=== PATIENT | female | born 1975 | race Caucasian/White ===

== ENCOUNTER → 2022-05-09 | Outpatient (CLI) | payer OTHER, SELFPAY ==
[2022-05-09 12:58] LABS: Erythrocyte Sedimentation Rate 4 mm/hr (0-30)
[2022-05-09 13:00] LABS: Absolute Neutrophil Count 2.9 X10^3/uL (2.0-7.7); Basophil# 0.04 X10^3/uL; Basophil% 0.8 % (0-1); Eosinophil# 0.13 X10^3/uL; Eosinophils% 2.5 % (0-5); Hematocrit 41.5 % (37-47); Hemoglobin 13.3 g/dL (12.0-15.0); Lymphocyte % 34.4 % (19-41); Mean Corpuscular Hgb 30.4 pg (27.0-32.0); Mean Platelet Vol. 9.9 fl (6.2-12.0); Monocyte# 0.38 X10^3/uL; Monocyte% 7.3 % (0-10); NRBC Flagged by Analyzer 0 % (0-5); Neutrophil # 2.87 X10^3/uL (2.7-7.7); Neutrophil % 54.8 % (47-70); Platelet Count 233 K/mm3 (150-450); RBC Distribution Width CV 13.5 % (11.6-14.6); RBC Distribution Width SD 47.2 fl (35.1-43.9); Red Blood Count 4.37 M/mm3 (4.2-5.4); White Blood Count 5.2 K/mm3 (4.4-11.0)
[2022-05-09 13:29] LABS: ALB/GLOB Ratio 1.1 RATIO (0.9-2.4); AST(SGOT) 18 U/L (15-37); Alanine Aminotransfer ALT/SGPT 33 U/L (13-56); Albumin, Serum 3.7 g/dL (3.2-5.0); Alkaline Phosphatase 71 U/L (45-117); Anion Gap 8 (5-15); BUN 15 mg/dL (7-18); BUN/Creat Ratio 19.5 RATIO (10-20); CRP < 2.90 mg/L (0.0-3.0); Chloride 107 mmol/L (98-107); Creatinine, Serum 0.77 mg/dL (0.55-1.02); EST Glomerular Filtration Rate 85 mL/min (>60); Est Glom Filt Rate - Afr Amer 103 mL/min (>60); Globulin 3.3 g/dL (2.2-4.2); Glucose 90 mg/dL (74-106); LDH 178 U/L (84-246); Potassium 3.9 mmol/L (3.5-5.1); Sodium Level 143 mmol/L (136-145)
[2022-05-10 13:08] LABS: Anti-Centromere B Ab <0.2 AI (0.0-0.9); Anti-Chromatin <0.2 AI (0.0-0.9); Anti-Jo <0.2 AI (0.0-0.9); Anti-Scleroderma-70 AB <0.2 AI (0.0-0.9); RNP Ab <0.2 AI (0.0-0.9); SJOGREN'S Anti-SS-A test < 0.2 AI (0.0-0.9); SJOGREN'S Anti-SS-B test < 0.2 AI (0.0-0.9); Smith Ab <0.2 AI (0.0-0.9)
[2022-05-10 15:08] LABS: Endomysial Antibody IgA Negative (Negative)
[2022-05-10 22:49] LABS: Immunoglobulin A 296 mg/dL (87-352); t-Transglutaminase IgA <2 U/mL (0-3)
[2022-05-10 22:56] LABS: Anti-dsDNA Ab <1 IU/mL (0-9)
[2022-05-14 09:52] LABS: Calprotectin, Stool 169 ug/g (0-120)
[2022-05-15 03:07] LABS: Albumin 3.8 g/dL (2.9-4.4); Alpha-1-Globulins 0.2 g/dL (0.0-0.4); Alpha-2-Globulins 0.7 g/dL (0.4-1.0); Cytoplasmic Ab (C-ANCA) <1:20 titer (Neg:<1:20); Gamma Globulin 0.7 g/dL (0.4-1.8); Immunoglobulin A 293 mg/dL (87-352); Immunoglobulin E 4 IU/mL (6-495); Immunoglobulin G 638 mg/dL (586-1602); Immunoglobulin M 137 mg/dL (26-217); PROEL- TOTAL PROTEIN 6.5 g/dL (6.0-8.5)
[2022-05-15 14:26] LABS: Perinuclear Ab (P-ANCA) <1:20 titer (Neg:<1:20)
== END | disposition home or self-care (01) ==
PROVIDERS: PCP Nurse Practitioner; Referring Provider Nurse Practitioner Adult Health; Visit Provider Nurse Practitioner Adult Health
DX: K52.9 Noninfective gastroenteritis and colitis, unspecified (principal)
CPT/HCPCS: 36415; 80053; 82784; 82785; 83516; 83615; 83630; 83993; 84165; 85025; 85652; 86140; 86225; 86235; 86255; 86256; 86334

== ENCOUNTER → 2022-05-18 | Outpatient (CLI) | payer OTHER, SELFPAY ==
--- NOTE | 2022-05-18 11:56 | NM_ITS ---
CLINICAL: 47-year-old female with history of abdominal pain, early satiety and chronic nausea. SEMI-SOLID PHASE 99m Tc SULFUR COLLOID GASTRIC EMPTYING STUDY COMPARISON: None available FINDINGS: The patient was administered 1.1 mCi of 99m Tc sulfur colloid mixed with oatmeal and consumed per os. Image acquisitions in the anterior-posterior projections were obtained for 60 minutes. There is prompt visualization of the stomach. There is no gastroesophageal reflux identified. The T ? raw data emptying was calculated to be 14.59 minutes, (Normal: 12-56 minutes). NM/Gastric Emptying Study IMPRESSION: 1. NORMAL 99m Tc sulfur colloid semi-solid phase (oatmeal) gastric emptying imaging examination. A. There is normal and preserved semi-solid phase gastric emptying compared to normal controls. (Amaya et al, J Nucl Med Tech 38: 186, 2010). Electronically Signed: Marcello Short, at 18:41 EST ,
== END | disposition home or self-care (01) ==
LOC: NM 11:56
PROVIDERS: PCP Nurse Practitioner; Visit Provider Nurse Practitioner Adult Health
DX: R11.0 Nausea (principal); R68.81 Early satiety; K52.9 Noninfective gastroenteritis and colitis, unspecified
CPT/HCPCS: 78264; A9541

== ENCOUNTER 2022-05-22 11:26 | Day surgery (SDC) | payer OTHER, SELFPAY ==
[2022-05-22] VITALS (7 sets, daily range): BP systolic 96–133; BP diastolic 69–79; PULSE 74–87; RESP 16–17; TEMP 36.2–36.9; O2SAT 90–100; BMI 33.3
[2022-05-22] MEDS: Lactated Ringers 1,000 ML 15 ML IV (11:59)
--- NOTE | 2022-05-22 12:45 | COLBX_PTH ---
PATIENT: JUSTIN DURON LOC: EN U#:[id number] AGE/SX: 47/F ROOM: RE05/22/[address]: Dr. Ashok Villa DO : 1975 BED: DIS: 05/22/2022 SPEC #: [id number] RECD: 05/22/22 14:24 STATUS: BRENT REJorge #: [id number] BRIA: 05/22/22 12:[address]: Ashok Villa DEPT: SURGICAL PATHOLOGY RECD BY: Aly Roman ENTERED: 05/23/22 08:07 SP TYPE: COLON BX OTHR DR: Teodora Jacobs, SUPERVISOR MACHINE SETTER-C Tissues: A - Duodenum, NOS B - Gastric mucous membrane C - Ileum, NOS D - COLON BIOPSY Procedures: Surgery Specimen Level IV HEADER OPERATION: Colonoscopy, EGD ([facility]), biopsy PRE-OP DIAGNOSIS: Chronic nausea, postprandial diarrhea, early satiety TISSUE SUBMITTED: A ? Duodenum biopsy, B ? Gastric antrum biopsy for histo and H. pylori, C ? Terminal ileum biopsy, D ? Random colonic biopsy MICROSCOPIC DIAGNOSIS A. Duodenum, biopsy: No pathologic change. B. Gastric antrum, biopsy: Chronic gastritis. See comment. C. Terminal ileum, biopsy: No pathologic change. See comment. D. Colon, random biopsy: No pathologic change. AM:rose 05/24/2022 COMMENT B. The results of immunohistochemistry for Helicobacter pylori will be reported separately ([id number]). C. Benign appearing lymphoid aggregates are present. MICROSCOPIC DESCRIPTION Slides are reviewed. GROSS DESCRIPTION A - Received in fixative is one container labeled with the patient's name and designated duodenum biopsy. The specimen consists of two irregular fragments of light dumont soft tissue that in aggregate measure 0.6 x 0.3 x 0.1 cm. The specimen is totally submitted in one cassette. B - Received in fixative is one container labeled with the patient's name and designated gastric antrum biopsy. The specimen consists of one irregular fragment of light dumont soft tissue that measures 0.3 x 0.3 x 0.1 cm. The specimen is totally submitted in one cassette. C - Received in fixative is one container labeled with the patient's name and designated terminal ileum biopsy. The specimen consists of multiple irregular fragments of light dumont soft tissue that in aggregate measure 0.8 x 0.4 x 0.1 cm. The specimen is totally submitted in one cassette. D - Received in fixative is one container labeled with the patient's name and designated random colonic biopsy. The specimen consists of multiple irregular fragments of light dumont soft tissue that in aggregate measure 1.0 x 0.5 x 0.1 cm. The specimen is totally submitted in one cassette. / SJ:rg 05/23/2022 TC:3 CPT: 93962 x4
--- NOTE | 2022-05-22 12:45 | IMM_PTH ---
PATIENT: JUSTIN DURON LOC: EN U#:[id number] AGE/SX: 47/F ROOM: RE05/22/[address]: Dr. Ashok Villa DO : 1975 BED: DIS: 05/22/2022 SPEC #: [id number] RECD: 05/23/22 09:35 STATUS: BRENT REQ #: [id number] BRIA: 05/22/22 12:[address]: Ashok Villa DEPT: IMMUNOHISTOCHEMISTRY RECD BY: Lizz Hanson ENTERED: 05/23/22 09:35 SP TYPE: IMMUNO OTHR DR: Teodora Jacobs, WIRELINE OPERATOR-C Tissues: B - Stomach, NOS Procedures: H Pylori (initial) [facility]YSIC[facility] [address] [address] SPECIMEN INFORMATION: Tissue Source: B ? Gastric antrum Clinical Info: Chronic nausea, postprandial diarrhea, early satiety Specimen Number: [id number] CPT code: 22427 METHODOLOGY: Deparaffinized sections of prefer/formalin-fixed tissue or PAP/DQ stained slides are incubated with monoclonal/polyclonal antibodies/oligonucleotide probes. Localization is made via biotin free immunoperoxidase method. Appropriate controls are performed and reacted as expected. Results on target cell population are indicated in the following table: RESULTS: ANTIBODY / CLONE RESULT Block B H Pylori (polyclonal) negative These tests were developed and their performance characteristics determined by [facility]. They may not have been cleared or approved by the U.S. Food and Drug Administration. The FDA has determined that such clearance or approval is not necessary. The above immunohistochemical/dualISH markers are ordered and reviewed by the Pathologist. INTERPRETATION: B. Gastric antrum, biopsy: Negative for Helicobacter pylori organisms. AM:rose 05/24/2022
--- NOTE | 2022-05-22 13:14 | HP.PCM_ITS ---
History and Physical Date of Admission: 05/22/22 47 F who presents to the office today to establish with GI for chronic nausea, diarrhea, acid reflux. She and her moved to [place] from [place] to be near all their kids and grandkids. Her GI issues began approx 15 yrs ago. Diarrhea is especially problematic because she can't eat out or before going out. 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 She is lactose-intolerant, so she avoids dairy or uses lactaid. Otherwise no specific food triggers. She can have urgent diarrhea even before she finishes a meal. Never had an accident. No nocturnal diarrhea. She has nausea that starts after being up for about 45 minutes every morning. Takes famotidine every evening, takes omeprazole every morning. Takes vane seltzer chews prn for nausea w/ some relief. Can't eat due to nausea but carbs will help if she can tolerate eating anything. No vomiting. Gets full quickly. Appetite is ok. Weight has been stable. Has regurgitation of acid at night, sometimes with food in it. HOB is elevated but only helps minimally. Can have difficulty swallowing one small pill, but does fine with swallowing all pills at once. Used to have significant upper abdominal pain, bloating and gas--but all of those are relieved since starting a daily women's probiotic. She occas has formed stool but it feels like constipation to her since stool is difficult to pass since having rectocele repair). Then she has to apply pressure to vaginal wall to get stool to pass. No melena or hematochezia. Had EGD and colonoscopy done about 5 yrs ago, diagnosed with hiatal hernia PMH insignificant other than GI complaints, takes meloxicam for musculoskeletal PSH includes rectocele repair, cystocele repair, appy, cholecystectomy, hysterectomy No known FH GI disorders ROS Const Constitutional: No fatigue ENT ENT: Positive for difficulty swallowing Gastro GI: Positive for abdominal pain, bloating, constipation, diarrhea, heartburn, difficulty swallowing, excessive flatus and nausea/dyspepsia; No belching, change in bowel habits, change in stool character, coffee ground emesis, cramping, feeling full early, incontinent of stools, Vomiting blood/hematemesis, Blood in stool, loose stools, Black,tarry stools, pain with swallowing, vomiting or other Musc Musculoskeletal: Positive for joint pain, back pain, Arthritis, sciatica and leg pain at night Skin Skin: No yellowing of the eye or itchy eyes Psych Psychiatric: No anxiety and No depression Endo Endocrine: No fatigue Aller/Imm Allergy/Immunologic: No itchy eyes Yasmany/Lymp Hematologic/Lymphatic: Positive for easy bruising; No easy bleeding Exam Const General: cooperative, comfortable and no acute distress Nutritional Appearance: obese Orientation: alert, awake and oriented x3 HENMT Head: normal to inspection Eyes Sclera: sclerae normal Neck Neck: normal visual inspection Chest Chest palpation & inspection: normal inspection of the chest Resp Effort & Inspection: normal respiratory effort GI Inspection: normal to inspection Palpation: soft, no hepatosplenomegaly, no masses and nontender Skin General: no rashes or lesions noted Neuro Gait: normal gait Extrem General: pedal edema present Psych Mood: euthymic mood Quality Reporting Tobacco Screening ([facility]) Smoking Status: Never smoker Assessment and Plan Assessment and Plan (1) Chronic nausea: ?Status:?Chronic ?Plan: 47 yr old female with chronic nausea, acid reflux/regurgitation, post-prandial diarrhea DDx includes bile acid gastritis/diarrhea, PUD, H pylori, IBS, IBD RUQ US Gastric emptying Labs today EGD and colonoscopy, will decide if capsule endoscopy is needed too, f/u 2 wks later for discussion of bx results Will call her in meantime with test results and any recommendations Try colestipol 1 gram 1-2x per day for the diarrhea (2) Postprandial diarrhea: ?Status:?Chronic ?Plan: see above (3) Early satiety: ?Status:?Chronic ?Plan: see above ? ? ? Orders: Orders Gastric Emptying Study Today K52.9 - Noninfective gastroenteritis and colitis, unspecified, R11.0 - Nausea, R68.81 - Early satiety ? Comprehensive Metabolic Profil Today K52.9 - Noninfective gastroenteritis and colitis, unspecified ? C CRP Today K52.9 - Noninfective gastroenteritis and colitis, unspecified ? LDH Today K52.9 - Noninfective gastroenteritis and colitis, unspecified ? CBC W/Diff, Automated Today K52.9 - Noninfective gastroenteritis and colitis, unspecified ? Erythrocyte Sed Rate Today K52.9 - Noninfective gastroenteritis and colitis, unspecified ? ABRAHAM Comprehensive Panel Today K52.9 - Noninfective gastroenteritis and colitis, unspecified ? Calprotectin, Stool Today K52.9 - Noninfective gastroenteritis and colitis, unspecified ? Stool Lactoferrin/WBC Today K52.9 - Noninfective gastroenteritis and colitis, unspecified ? ANCA Today K52.9 - Noninfective gastroenteritis and colitis, unspecified ? Celiac Disease Profile Today K52.9 - Noninfective gastroenteritis and colitis, unspecified ? Immunoglobulins G/A/M/E Today K52.9 - Noninfective gastroenteritis and colitis, unspecified ? ALLEY + Protein Elect, Serum Today K52.9 - Noninfective gastroenteritis and colitis, unspecified ? Miscellaneous Lab Procedure Today K52.9 - Noninfective gastroenteritis and colitis, unspecified ? Abdomen Complete Today K52.9 - Noninfective gastroenteritis and colitis, unspecified, R11.0 - Nausea, R68.81 - Early satiety ? Medications: New colestipol ?1 g orally 1-2 times per day; avoid taking 1 hour before other medication or 4 hours after other medication 60 tabs 2RF ? I have examined the patient and the H&P has been reviewed. There are no clinical changes since date of exam.
--- NOTE | 2022-05-22 13:50 | OP.CCLET_ITS ---
05/22/2022 Teodora Bailey Re : Upper GI endoscopy procedure for Mackenzie Gustafson Dear Leo This procedure was performed on Sunday, May 22, 2022. My impressions and recommendations are as follows: Impressions : - Normal esophagus. - Medium-sized hiatal hernia. - Bile gastritis. Biopsied. - Erythematous duodenopathy. Biopsied. Recommendations : - Discharge patient to home. - Resume previous diet. - Continue present medications. - Await pathology results. - Use Protonix (pantoprazole) 40 mg PO BID for 4 weeks. My findings are described in the full procedure note, which is enclosed. If I can be of further assistance, please feel free to contact me at . Sincerely, Ashok Villa, 05/22/2022 1:49:37 PM This report has been signed electronically.
--- NOTE | 2022-05-22 13:50 | OP.EGD_ITS ---
Patient Name: Mackenzie Gustafson Procedure Date: 05/22/2022 1:11 PM Date of : 1975 Age: 47 Procedure: Upper GI endoscopy Indications: Epigastric abdominal pain, Dyspepsia, Failure to respond to medical treatment Providers: Ashok Villa DO Referring MD: Ashok Villa DO Medicines: Monitored Anesthesia Care Patient Profile: This is a 47 year old female. Refer to note in patient chart for documentation of history and physical. Patient has symptoms of chronic abdominal cramping and chronic epigastric abdominal pain. Complications: No immediate complications. Procedure: Pre-Anesthesia Assessment: - Prior to the procedure, a History and Physical was performed, and patient medications and allergies were reviewed. The risks and benefits of the procedure and the sedation options and risks were discussed with the patient. All questions were answered and informed consent was obtained. Patient identification and proposed procedure were verified by the physician in the pre-procedure area. Mental Status Examination: alert and oriented. Airway Examination: normal oropharyngeal airway and neck mobility. Respiratory Examination: clear to auscultation. CV Examination: normal. Prophylactic Antibiotics: The patient does not require prophylactic antibiotics. Prior Anticoagulants: The patient has taken no previous anticoagulant or antiplatelet agents. After reviewing the risks and benefits, the patient was deemed in satisfactory condition to undergo the procedure. The anesthesia plan was to use monitored anesthesia care (MAC). Immediately prior to administration of medications, the patient was re-assessed for adequacy to receive sedatives. The heart rate, respiratory rate, oxygen saturations, blood pressure, adequacy of pulmonary ventilation, and response to care were monitored throughout the procedure. The physical status of the patient was re-assessed after the procedure. After obtaining informed consent, the endoscope was passed under direct vision. Throughout the procedure, the patient's blood pressure, pulse, and oxygen saturations were monitored continuously. The Colonoscope was introduced through the mouth, and advanced to the second part of duodenum. The upper GI endoscopy was accomplished without difficulty. The patient tolerated the procedure well. Scope In: 1:20:16 PM Scope Out: 1:23:58 PM Total Procedure Duration Time 0 hours 3 minutes 42 seconds Findings: The examined esophagus was normal. A medium-sized hiatal hernia was present. Diffuse moderate inflammation characterized by congestion (edema) and erosions was found in the gastric body. Biopsies were taken with a cold forceps for histology. Verification of patient identification for the specimen was done. Estimated blood loss was minimal. Moderately erythematous mucosa without active bleeding and with no stigmata of bleeding was found in the duodenal bulb. Biopsies were taken with a cold forceps for histology. Verification of patient identification for the specimen was done. Estimated blood loss was minimal. Impression: - Normal esophagus. - Medium-sized hiatal hernia. - Bile gastritis. Biopsied. - Erythematous duodenopathy. Biopsied. Recommendation: - Discharge patient to home. - Resume previous diet. - Continue present medications. - Await pathology results. - Use Protonix (pantoprazole) 40 mg PO BID for 4 weeks. Procedure Code(s): --- Professional --- 34982, Esophagogastroduodenoscopy, flexible, transoral; with biopsy, single or multiple CPT copyright 2017 [employer]. All rights reserved. The codes documented in this report are preliminary and upon meat and poultry inspector review may be revised to meet current compliance requirements. Ashok Villa DO 05/22/2022 1:49:37 PM This report has been signed electronically. Number of Addenda: 0 Note Initiated On: 05/22/2022 1:11 PM
--- NOTE | 2022-05-22 13:53 | OP.CCLET_ITS ---
05/22/2022 Teodora Bailey Re : Colonoscopy procedure for Mackenzie Gustafson Dear Leo This procedure was performed on Sunday, May 22, 2022. My impressions and recommendations are as follows: Impressions : - Diverticulosis in the recto-sigmoid colon and in the sigmoid colon. - Congested mucosa in the recto-sigmoid colon, in the sigmoid colon, in the descending colon and in the ascending colon. Biopsied. - Ileitis. Biopsied. Recommendations : - Discharge patient to home. - Resume previous diet. - Continue present medications. - Await pathology results. - Repeat colonoscopy in 5 years for surveillance. - Return to GI office. My findings are described in the full procedure note, which is enclosed. If I can be of further assistance, please feel free to contact me at . Sincerely, Ashok Villa, 05/22/2022 1:52:59 PM This report has been signed electronically.
--- NOTE | 2022-05-22 13:53 | OP.COLON_ITS ---
Patient Name: Mackenzie Gustafson Procedure Date: 05/22/2022 1:24 PM Date of : 1975 Age: 47 Procedure: Colonoscopy Indications: Clinically significant diarrhea of unexplained origin Providers: Ashok Villa DO Referring MD: Ashok Villa DO Medicines: Monitored Anesthesia Care Patient Profile: This is a 47 year old female. Refer to note in patient chart for documentation of history and physical. Patient has symptoms of chronic abdominal cramping and chronic epigastric abdominal pain. Last Colonoscopy: 5 years ago. Complications: No immediate complications. Procedure: Pre-Anesthesia Assessment: - Prior to the procedure, a History and Physical was performed, and patient medications and allergies were reviewed. The risks and benefits of the procedure and the sedation options and risks were discussed with the patient. All questions were answered and informed consent was obtained. Patient identification and proposed procedure were verified by the physician in the pre-procedure area. Mental Status Examination: alert and oriented. Airway Examination: normal oropharyngeal airway and neck mobility. Respiratory Examination: clear to auscultation. CV Examination: normal. Prophylactic Antibiotics: The patient does not require prophylactic antibiotics. Prior Anticoagulants: The patient has taken no previous anticoagulant or antiplatelet agents. After reviewing the risks and benefits, the patient was deemed in satisfactory condition to undergo the procedure. The anesthesia plan was to use monitored anesthesia care (MAC). Immediately prior to administration of medications, the patient was re-assessed for adequacy to receive sedatives. The heart rate, respiratory rate, oxygen saturations, blood pressure, adequacy of pulmonary ventilation, and response to care were monitored throughout the procedure. The physical status of the patient was re-assessed after the procedure. After I obtained informed consent, the scope was passed under direct vision. Throughout the procedure, the patient's blood pressure, pulse, and oxygen saturations were monitored continuously. The Colonoscope was introduced through the anus and advanced to the terminal ileum. The colonoscopy was performed without difficulty. The patient tolerated the procedure well. The quality of the bowel preparation was good. Scope In: 1:28:07 PM Scope Withdrawal Time 0 hours 8 minutes 19 seconds Scope Out: 1:39:54 PM Total Procedure Duration Time 0 hours 11 minutes 47 seconds Findings: The perianal and digital rectal examinations were normal. A few small and large-mouthed diverticula were found in the recto-sigmoid colon and sigmoid colon. An area of mildly congested mucosa was found in the recto-sigmoid colon, in the sigmoid colon, in the descending colon and in the ascending colon. Biopsies were taken with a cold forceps for histology. Verification of patient identification for the specimen was done. Estimated blood loss was minimal. Patchy inflammation, mild in severity and characterized by erosions and erythema was found in the distal ileum. Biopsies were taken with a cold forceps for histology. Verification of patient identification for the specimen was done. Estimated blood loss was minimal. Impression: - Diverticulosis in the recto-sigmoid colon and in the sigmoid colon. - Congested mucosa in the recto-sigmoid colon, in the sigmoid colon, in the descending colon and in the ascending colon. Biopsied. - Ileitis. Biopsied. Recommendation: - Discharge patient to home. - Resume previous diet. - Continue present medications. - Await pathology results. - Repeat colonoscopy in 5 years for surveillance. - Return to GI office. Procedure Code(s): --- Professional --- 40864, Colonoscopy, flexible; with biopsy, single or multiple CPT copyright 2017 [employer]. All rights reserved. The codes documented in this report are preliminary and upon school age program associate review may be revised to meet current compliance requirements. Ashok Villa DO 05/22/2022 1:52:59 PM This report has been signed electronically. Number of Addenda: 0 Note Initiated On: 05/22/2022 1:24 PM
== END 2022-05-22 15:00 | disposition home or self-care (01) ==
LOC: EN 11:31 → AC 11:32
PROVIDERS: PCP Nurse Practitioner; Referring Provider Nurse Practitioner; Visit Provider Internal Medicine Gastroenterology
PROC: 0DJD8ZZ Inspection of Lower Intestinal Tract, Via Natural or Artificial Opening Endoscopic (ICD-10-PCS; CPT 45378; principal; 2022-05-22 12:40)
DX: K44.9 Diaphragmatic hernia without obstruction or gangrene (principal); K57.30 Diverticulosis of large intestine without perforation or abscess without bleeding; K29.70 Gastritis, unspecified, without bleeding; R19.7 Diarrhea, unspecified; R11.0 Nausea; K21.9 Gastro-esophageal reflux disease without esophagitis; R68.81 Early satiety; K52.9 Noninfective gastroenteritis and colitis, unspecified
CPT/HCPCS: 43239; 45380; 88305; 88342; J7120; J2405

== ENCOUNTER → 2022-05-29 | Outpatient (CLI) | payer OTHER, SELFPAY ==
--- NOTE | 2022-05-29 07:46 | US_ITS ---
STUDY: ABDOMINAL ULTRASOUND - RIGHT UPPER QUADRANT REASON FOR VISIT: Female, 47 years old, nausea and vomiting TECHNIQUE: Ultrasound evaluation of the right upper quadrant was performed with real-time and static oneal-scale imaging. TECHNICAL QUALITY: Adequate. COMPARISON: None. FINDINGS: Liver: The liver measures 14.2 cm. There is increased echogenicity consistent with fatty infiltration. The bile ducts are within normal limits. There is hepatic color flow. The direction of portal flow is hepatopetal. There is no demonstrated mass lesion. Gallbladder: The patient is status post cholecystectomy. Common Bile Duct (C.B.D.): The common bile duct measures 6.7 mm. Pancreas: Normal size of the head, body and tail of the pancreas. There is increased echogenicity of the pancreas. There is no demonstrated pancreatic mass or cyst. Right Kidney: Normal size of the right kidney. The right kidney measures 10.3 x4.8 x 5.0 cm. Normal renal cortex. The right cortex measures 1.9 cm. There is no demonstrated renal mass or cyst. There is no right hydronephrosis.
== END | disposition home or self-care (01) ==
LOC: US 07:46
PROVIDERS: PCP Nurse Practitioner; Visit Provider Nurse Practitioner Adult Health
DX: R11.0 Nausea (principal); R68.81 Early satiety; K52.9 Noninfective gastroenteritis and colitis, unspecified
CPT/HCPCS: 76705

== ENCOUNTER → 2022-05-30 | Outpatient (CLI) | payer OTHER, SELFPAY ==
[2022-05-30 13:12] LABS: International Normalized Ratio 0.9; Prothrombin Time (Protime)PT. 12.1 SECONDS (11.7-14.9)
[2022-05-30 13:18] LABS: Ammonia < 10.0 umol/L (11-32)
[2022-05-30 13:35] LABS: Ferritin 102 ng/mL (8-252); LDH 176 U/L (84-246); Lipase 60 U/L (73-393)
[2022-05-30 13:38] LABS: Hemoglobin A1c 5.2 % (3.8-5.6)
[2022-05-30 14:04] LABS: HIV - WCH Non-Reactive (Nonreactive)
[2022-06-01 17:02] LABS: Anti-Mitochondrial AB <20.0 Units (0.0-20.0)
[2022-06-01 21:37] LABS: Fats, Neutral Increased (.); Fats, Total Increased (.)
[2022-06-02 20:07] LABS: Angiotensin Convert Enzyme 26 U/L (14-82); Ceruloplasmin 16.4 mg/dL (19.0-39.0); HEPATITIS B SURFACE AG Negative (Negative); Hep C Antibodies Non Reactive (Non Reactive); Hepatitis A IgM Antibody Negative (Negative); Hepatitis B Core AB IgM Negative (Negative); IgG, Quant 617 mg/dL (586-1602); Immunoglobulin G, Subclass 1 297 mg/dL (248-810); Immunoglobulin G, Subclass 2 183 mg/dL (130-555); Immunoglobulin G, Subclass 3 84 mg/dL (15-102); Immunoglobulin G, Subclass 4 16 mg/dL (2-96)
[2022-06-03 08:29] LABS: AFP, Tumor Marker < 1.8 ng/mL (0.0-6.4); Anti-Smooth Muscle ABS 7 Units (0-19); Copper, Serum or Plasma 89 ug/dL (80-158); Haptoglobin 160 mg/dL (42-296)
[2022-06-05 08:56] LABS: Pancreatic Elastase, Fecal 345 (>200)
== END | disposition home or self-care (01) ==
PROVIDERS: PCP Nurse Practitioner; Referring Provider Nurse Practitioner Adult Health; Visit Provider Nurse Practitioner Adult Health
DX: K76.0 Fatty (change of) liver, not elsewhere classified (principal); K86.89 Other specified diseases of pancreas
CPT/HCPCS: 36415; 80074; 82105; 82140; 82164; 82390; 82525; 82653; 82705; 82728; 82784; 82787; 83010; 83036; 83516; 83615; 83690; 85610; 86703

== ENCOUNTER → 2022-06-07 | Outpatient (CLI) | payer OTHER, SELFPAY ==
--- NOTE | 2022-06-07 08:00 | US_ITS ---
STUDY: ABDOMINAL ULTRASOUND - ELASTOGRAPHY REASON FOR VISIT: Female, 47 years old. Fatty infiltration of the liver. TECHNIQUE: Liver stiffness measurements were obtained on a [employer] RS 85 ultrasound machine using a CA 1-7 probe following the SRU guidelines. 3 measurements were obtained using a 2-D-SWE method. TheIQR/M was 22% suggesting a quality data set. TECHNICAL QUALITY: Adequate. COMPARISON: Comparison is made with prior examination dated May 29, 2022. FINDINGS: Liver: There is evidence of fatty infiltration of the liver. Median liver stiffness measured 7 kPa. US/Elastography Parenchyma/Organ IMPRESSION: Liver stiffness measures 7 kPa compatible with F2-F3 (Mild to moderate liver fibrosis) Metavir score. Electronically Signed: Matt Pope MD at 15:21 EDT ,
== END | disposition home or self-care (01) ==
LOC: US 07:59
PROVIDERS: PCP Nurse Practitioner; Referring Provider Nurse Practitioner Adult Health; Visit Provider Nurse Practitioner Adult Health
DX: K76.0 Fatty (change of) liver, not elsewhere classified (principal); K86.89 Other specified diseases of pancreas
CPT/HCPCS: 76981

== ENCOUNTER → 2022-06-14 | Outpatient (CLI) | payer OTHER, SELFPAY | END | disposition home or self-care (01) | LOC: LABSPEC 13:39 | PROVIDERS: PCP Nurse Practitioner; Referring Provider Nurse Practitioner Adult Health; Visit Provider Nurse Practitioner Adult Health | DX: K52.9 Noninfective gastroenteritis and colitis, unspecified (principal) | CPT/HCPCS: 87177; 87209; 87329; 87506 ==

== ENCOUNTER → 2022-06-15 | Outpatient (CLI) | payer OTHER, SELFPAY ==
--- NOTE | 2022-06-15 12:15 | MRI_ITS ---
STUDY: MR CHOLANGIOPANCREATOGRAPHY (MRCP); MRI ABDOMEN WITHOUT CONTRAST REASON FOR EXAM: Female, 47 years old. Postprandial epigastric pain TECHNIQUE: Standard MRCP technique was utilized. Three-dimensional reconstruction images performed of the biliary system at an independent workstation and reviewed at time of dictation. . Multiphase MRI performed without IV contrast COMPARISON: Ultrasound 05/29/2022, elastography 06/07/2022 FINDINGS: MRCP: Gall Bladder: Gall bladder is surgically absent. Cystic duct: Cystic duct was not well visualized. Intrahepatic ducts: Normal visualized intrahepatic ducts with no demonstrated fixed filling defect, dilation or stricture. Common hepatic duct: Normal with no demonstrated fixed filling defect, dilation or stricture. Common bile duct: There is mild dilation, which is within normal limits in a patient who is status post cholecystectomy. The maximal diameter of the common bile duct measures 7.1 mm. Pancreatic duct: Normal with no demonstrated fixed filling defect, dilation or stricture. MRI abdomen without and with IV contrast: Visualized base of the chest is unremarkable. The visualized portions of the heart are within normal limits. Normal liver. Normal spleen. Normal pancreas. Normal bilateral adrenal glands. Normal right kidney. Normal left kidney. Visualized hollow viscus structures are grossly unremarkable. The appendix is not visualized. No retroperitoneal adenopathy. No bone marrow edema. MRI/MRCP Abdomen without Contrast IMPRESSION: 1. Normal MR Cholangiopancreatography (MRCP). 2. Cholecystectomy. Electronically Signed: Jose Stevens (Brooks), at 14:18 EDT ,
== END | disposition home or self-care (01) ==
LOC: MRI 12:15
PROVIDERS: PCP Nurse Practitioner; Referring Provider Nurse Practitioner Adult Health; Visit Provider Nurse Practitioner Adult Health
DX: R10.13 Epigastric pain (principal); K86.89 Other specified diseases of pancreas; K52.9 Noninfective gastroenteritis and colitis, unspecified
CPT/HCPCS: 74181

== ENCOUNTER → 2022-09-27 | Outpatient (CLI) | payer OTHER, SELFPAY ==
[2022-09-27 10:23] LABS: D-Dimer Quantitative (DVT/PE) 0.33 FEU/ug/m (0.27-0.49)
== END | disposition home or self-care (01) ==
LOC: LABSPEC 08:55
PROVIDERS: PCP Nurse Practitioner; Referring Provider Nurse Practitioner; Visit Provider Nurse Practitioner
DX: M79.604 Pain in right leg (principal)
CPT/HCPCS: 85379

== ENCOUNTER → 2022-11-02 | Outpatient (CLI) | payer OTHER, SELFPAY ==
[2022-11-05 17:07] LABS: Gastrin, Serum 99 pg/mL (0-115)
[2022-11-07 16:09] LABS: Clam <0.10 kU/L (Class 0); Codfish <0.10 kU/L (Class 0); Corn <0.10 kU/L (Class 0); Egg, White <0.10 kU/L (Class 0); Milk (Cow) <0.10 kU/L (Class 0); Peanut <0.10 kU/L (Class 0); SCALLOP <0.10 kU/L (Class 0); SESAME SEED <0.10 kU/L (Class 0); Shrimp <0.10 kU/L (Class 0); Soybean <0.10 kU/L (Class 0); Walnut, (Food) <0.10 kU/L (Class 0); Wheat <0.10 kU/L (Class 0)
== END | disposition home or self-care (01) ==
PROVIDERS: PCP Nurse Practitioner; Referring Provider Internal Medicine Gastroenterology; Visit Provider Internal Medicine Gastroenterology
DX: K52.9 Noninfective gastroenteritis and colitis, unspecified (principal); R19.5 Other fecal abnormalities; K76.0 Fatty (change of) liver, not elsewhere classified; K86.89 Other specified diseases of pancreas
CPT/HCPCS: 36415; 82941; 86003

== ENCOUNTER → 2022-11-06 | Outpatient (CLI) | payer OTHER, SELFPAY ==
[2022-11-11 12:07] LABS: 5-HIAA, 24UR 6.8 mg/24 hr (0.0-14.9)
== END | disposition home or self-care (01) ==
LOC: LAB 08:54
PROVIDERS: PCP Nurse Practitioner; Referring Provider Internal Medicine Gastroenterology; Visit Provider Internal Medicine Gastroenterology
DX: R19.5 Other fecal abnormalities (principal); K76.0 Fatty (change of) liver, not elsewhere classified; K86.89 Other specified diseases of pancreas
CPT/HCPCS: 81050; 83497

== ENCOUNTER → 2024-08-27 | Outpatient (CLI) | payer OTHER, SELFPAY ==
[2024-08-27 15:11] LABS: Absolute Lymphocyte Count 1.35 X10^3/uL (0.83-4.51); Absolute Neutrophil Count 1.7 X10^3/uL (2.0-7.7); Basophil# 0.02 X10^3/uL; Basophil% 0.6 % (0-1); Eosinophil# 0.09 X10^3/uL; Eosinophils% 2.6 % (0-5); Hematocrit 37.6 % (37-47); Lymphocyte # 1.35 X10^3/ul (0.83-4.51); Mean Corp Hgb Conc 31.9 g/dL (32-36); Mean Corpuscular Hgb 31.3 pg (27.0-32.0); Mean Corpuscular Volume 97.9 fL (81-99); Mean Platelet Vol. 9.5 fl (6.2-12.0); Monocyte# 0.35 X10^3/uL; Monocyte% 10.1 % (0-10); NRBC Flagged by Analyzer 0 % (0-5); Neutrophil # 1.65 X10^3/uL (2.7-7.7); Neutrophil % 47.7 % (47-70); Platelet Count 185 K/mm3 (150-450); RBC Distribution Width CV 13.9 % (11.6-14.6); RBC Distribution Width SD 49.8 fl (35.1-43.9); Red Blood Count 3.84 M/mm3 (4.2-5.4); White Blood Count 3.5 K/mm3 (4.4-11.0)
[2024-08-27 15:56] LABS: ALB/GLOB Ratio 1.8 RATIO (0.9-2.4); AST(SGOT) 31 U/L (<=31); Alanine Aminotransfer ALT/SGPT 17 U/L (<=34); Albumin, Serum 4.3 g/dL (3.5-5.0); Alkaline Phosphatase 48 U/L (35-104); Anion Gap 10 (5-15); BUN 12 mg/dL (4-19); CRP < 3.00 mg/L (0.0-3.0); Calcium,Total 9.1 mg/dL (7.6-11.0); Carbon Dioxide 24.9 mmol/L (21.0-32.0); Chloride 104 mmol/L (98-108); Creatinine, Serum 0.73 mg/dL (0.70-1.20); EST Glomerular Filtration Rate 100 (>60); Globulin 2.5 g/dL (2.2-4.2); Glucose 79 mg/dL (70-99); Potassium 4.7 mmol/L (3.3-5.1); Protein, Total 6.7 g/dL (5.9-8.4); Sodium Level 139 mmol/L (133-145); Total Bilirubin 0.45 mg/dL (0.00-1.30)
== END | disposition home or self-care (01) ==
LOC: LAB 13:43
PROVIDERS: PCP Nurse Practitioner
DX: R10.9 Unspecified abdominal pain (principal); R11.0 Nausea; K76.0 Fatty (change of) liver, not elsewhere classified; R19.5 Other fecal abnormalities
CPT/HCPCS: 36415; 80053; 85025; 86140